=== PATIENT | male | born 1935 | race Caucasian/White ===

== ENCOUNTER 2021-01-06 10:35 | Emergency (ER) | payer MEDICARE, BC, SELFPAY ==
[2021-01-06 10:54] VITALS: BP 102/63; PULSE 73; RESP 14; TEMP 36.4; O2SAT 98
[2021-01-06 12:52] LABS: Add Manual Diff / Slide Review NO; Basophils Absolute Auto 0 /uL (0-100); Basophils Percent Auto 0.8 % (0-2); Eosinophils Absolute Auto 100 /uL (0-450); Eosinophils Percent Auto 1.3 % (2-4); Hematocrit 43.6 % (41-53); Hemoglobin 14.6 g/dL (13.5-17.5); Lymphocytes Absolute Auto 1400 /uL (1100-4500); Lymphocytes Percent Auto 26.1 % (25-40); Mean Corpuscular HGB Conc 33.5 % (30-36); Mean Corpuscular Hemoglobin 33.3 PG (26-34); Mean Corpuscular Volume 99.2 fL (80-100); Monocytes Absolute Auto 700 /uL (0-900); Monocytes Percent Auto 13.1 % (3-14); Neutrophils Absolute Auto 3200 /uL (1500-7000); Neutrophils Percent Auto 58.7 % (50-75); Platelet Count 221 X10^3/uL (150-400); Red Blood Cell Count 4.39 X10^6/uL (4.5-5.9); Red Cell Distribution Width 13.3 % (11.6-14.8); White Blood Cell Count 5.5 X10^3/uL (4.5-11.0)
[2021-01-06 12:58] LABS: Alanine Aminotransferase 30 IU/L (<50); Albumin 3.9 g/dL (3.5-5.0); Albumin Globulin Ratio 1.6 (1.0-2.8); Alkaline Phosphatase 44 U/L (38-126); Aspartate Aminotransferase 37 IU/L (17-59); BUN Creatinine Ratio 20.2 (6-22); Bilirubin Total 0.6 mg/dL (0.2-1.3); Blood Urea Nitrogen 17 mg/dL (9-20); Calcium 9.1 mg/dL (8.4-10.2); Carbon Dioxide 24 mmol/L (22-32); Chloride 111 mmol/L (98-107); Estimated Glomerular Filt Rate > 60.0 mL/min (>60); Globulin 2.4 g/dL (1.7-4.1); Glucose 96 mg/dL (80-110); HEMOLYSIS < 15 (0-50); Lipase 163 U/L (23-300); Potassium 3.9 mmol/L (3.4-5.1); Sodium 141 mmol/L (137-145); Total Protein 6.3 g/dL (6.3-8.2)
[2021-01-06 14:30] VITALS: BP 130/79; PULSE 79; RESP 18; O2SAT 100
--- NOTE | 2021-01-06 15:25 | ED.ABDPAIN ---
HPI - Abdominal Pain General Chief Complaint: Abdominal Pain Stated Complaint: right groin hernia, pain Time Seen by Provider: 01/06/21 15:05 Source: patient Mode of arrival: Wheelchair Limitations: no limitations History of Present Illness HPI narrative: Patient is a 85-year-old male with history of diverticulitis right inguinal canal hernia and right epididymis minus presenting to the ED for a right scrotal pain and inguinal pain. He has had symptoms ongoing for at least the last few days. He has been seen and evaluated at [facility] 5 times. He has had [address] on December 28 which showed a small amount of fluid in the right inguinal canal and a testicular ultrasound on January 01 which showed prominence right epididymal tail the increased vascularity suggestive of epididymitis in a partially reducible right inguinal canal hernia with fat and fluid. He has been treated with antibiotics. He presents today because they would like a 2nd opinion. is quite upset that it will take over a months to get into a surgeon. Today he was standing when he had sudden severe pain in his right inguinal canal. His pain is certainly worse when he bends over to tie his shoes it is better when he lies flat. She is concerned because he might fall secondary to the pain. Related Data Home Medications Medication Instructions Recorded Confirmed acetaminophen 325 mg tablet 325 mg PO ONCE PRN 12/25/19 07/17/20 (Tylenol) ascorbate calcium (vitamin C) 500 1 gram PO Q6H 12/25/19 07/17/20 mg tablet ergocalciferol (vitamin D2) 1,250 1,250 mcg PO QWEEK 12/25/19 07/17/20 mcg (50,000 unit) capsule escitalopram oxalate 10 mg tablet 10 mg PO DAILY 12/25/19 07/17/20 (Lexapro) apixaban 2.5 mg tablet (Eliquis) 2.5 mg PO BID 12/27/19 07/17/20 digoxin 125 mcg (0.125 mg) tablet 125 mcg PO DAILY 07/17/20 07/17/20 Allergies Allergy/AdvReac Type Severity Reaction Status Date / Time No Known Drug Allergies Allergy Verified 01/06/21 11:00 Review of Systems Review of Systems Narrative: GENERAL: Denies chills, fatigue, malaise, fever, sweats, travel HEENT: Denies sinus pain, ear pain, sore throat, difficulty swallowing, neck pain RESPIRATORY: Denies dyspnea, cough, wheezing, hemoptysis, sputum. CARDIOVASCULAR: Denies chest pain, palpitations, orthopnea, edema GASTROINTESTINAL: See HPI : Right testicular pain MUSCULOSKELETAL: Denies weakness, joint pain, or bony pain SKIN: No rash, no erythema, no pruritus NEUROLOGIC: Denies weakness, dizziness, headache, numbness, change in speech, confusion PSYCHIATRIC: No concerning psychosocial issues. 12 point review of systems is negative except for those stated above and HPI Patient History Medical History History of malignant neoplasm of prostate Malignant neoplasm prostate Surgical History Hx of radical prostatectomy Social History Smoking Status: Never smoker Smoking Status: Never smoker alcohol intake frequency: 0-2 drinks per day Substance Use Type: does not use Exam Initial Vital Signs Initial Vital Signs: Vital Signs Temperature 97.6 F 01/06/21 10:54 Pulse Rate 73 01/06/21 10:54 Respiratory Rate 14 01/06/21 10:54 Blood Pressure 102/63 01/06/21 10:54 Pulse Oximetry 98 01/06/21 10:54 GENERAL: Alert 85-year-old male sitting in bed does not appear in any acute pain HEENT: Head atraumatic,EOMI, pupils reactive, face symmetric, moist mucous membranes CARDIOVASCULAR: Regular rate and rhythm without murmurs, rubs or gallops. RESPIRATORY: Breath sounds equal bilaterally, no wheezes rales or rhonchi. ABDOMEN: Soft, nontender. Normoactive bowel sounds all 4 quadrants. No guarding or rebound. : When lying flat and there is minimal bulge in the right inguinal canal. Left testicle is nontender are red right testicle also nontender. He does have pain with palpation and certain area in the right inguinal canal EXTREMITIES: Normal range of motion, no clubbing or edema. Neurovascularly intact NEUROLOGICAL: Alert and oriented x4.Normal gait and speech. SKIN: Warm, dry, no laceration, no petechiae, no rashes or lesions. Course Orders Ordered: ED Orders 01/06/21 12:21 EKG-12 Lead Stat 01/06/21 12:36 Complete Blood Count AUTO DIFF Stat Comprehensive Metabolic Panel Stat Lipase Stat Vital Signs Vital signs: Vital Signs - 8 hr 01/06/21 10:54 01/06/21 14:30 Temperature 97.6 F Pulse Rate 73 79 Respiratory Rate 14 18 Blood Pressure 102/63 130/79 Pulse Oximetry 98 100 MDM - Abdominal Pain Lab Data Result diagrams: 01/06/21 12:36 01/06/21 12:36 Labs: Lab Results 01/06/21 01/06/21 Range/Units 12:36 12:36 WBC 5.5 (4.5-11.0) X10^3/uL RBC 4.39 L (4.5-5.9) X10^6/uL Hgb 14.6 (13.5-17.5) g/dL Hct 43.6 (41-53) % MCV 99.2 (80-100) fL MCH 33.3 (26-34) PG MCHC 33.5 (30-36) % RDW 13.3 (11.6-14.8) % Plt Count 221 (150-400) X10^3/uL Neut % (Auto) 58.7 (50-75) % Lymph % (Auto) 26.1 (25-40) % [place] % (Auto) 13.1 (3-14) % Eos % (Auto) 1.3 L (2-4) % Baso % (Auto) 0.8 (0-2) % Neut # (Auto) 3200 (1549-9292) /uL Lymph # (Auto) 1400 (5691-0298) /uL [place] # (Auto) 700 (0-900) /uL Eos # (Auto) 100 (0-450) /uL Baso # (Auto) 0 (0-100) /uL Sodium 141 (137-145) mmol/L Potassium 3.9 (3.4-5.1) mmol/L Chloride 111 H (98-107) mmol/L Carbon Dioxide 24 (22-32) mmol/L BUN 17 (9-20) mg/dL Creatinine 0.84 (0.66-1.25) mg/dL Estimated GFR > 60.0 (>60) mL/min BUN/Creatinine Ratio 20.2 (6-22) Glucose 96 (80-110) mg/dL Calcium 9.1 (8.4-10.2) mg/dL Total Bilirubin 0.6 (0.2-1.3) mg/dL AST 37 (17-59) IU/L ALT 30 (<50) IU/L Alkaline Phosphatase 44 (38-126) U/L Total Protein 6.3 (6.3-8.2) g/dL Albumin 3.9 (3.5-5.0) g/dL Globulin 2.4 (1.7-4.1) g/dL Albumin/Globulin Ratio 1.6 (1.0-2.8) Lipase 163 (23-300) U/L Point of care testing: Urine Dip Bedside Urine Glucose Negative Bedside Urine Bilirubin - Negative Bedside Urine Ketone - Negative Urine Specific [place] 1.020 Bedside Urine Occult Blood - Negative Bedside Urine pH 6.0 Bedside Urine Protein - Negative Bedside Urine Urobilinogen - Negative Bedside Urine Nitrite - Negative Bedside Urine Leukocytes - Negative Esterase Imaging Data US Scrotum: Radiologist's Impression: PROCEDURE: US SCROTUM INDICATIONS: RIGHT SCROTAL PAIN ?HERNIA TECHNIQUE: Real-time scanning was performed of the scrotum and testicles, with image documentation. Color and pulse Doppler interrogation was performed of both testicles. COMPARISON: [facility], US, US TESTICULAR SCROTUM + DOPPLER, 01/01/2021, 12:05. [facility], [place], US TESTICULAR SCROTUM, 12/28/2020, 10:38. FINDINGS: Right: Testicle is normal in size at 2.8 x 2.2 x 1.9 cm, and homogenous in echotexture. A few tiny hyper echogenic foci are seen scattered in right testicular parenchyma. Epididymis is normal in overall size and morphology. Small right-sided hydrocele is seen with minimal amount of internal debris. No varicocele.. Overlying scrotal skin thickening is seen. Left: Testicle is normal in size at 2.7 x 2.4 x 2 cm, and mildly heterogeneous in echotexture. Epididymis is normal in overall size. Heterogeneous parenchymal echotexture is see. Moderate slightly complex left hydrocele is seen. No varicoceles. Overlying scrotal skin thickening is seen. 5 x 6 x 3 mm avascular hyperechoic lesion noted in posterior left scrotal wall. Doppler: Color and pulse Doppler demonstrate increased vascularity in left testis and left epididymis. Right inguinal defect measures 1.5 cm at the neck is seen containing peristalising bowel loops and is partially reducible. IMPRESSION: 1. Left orchitis and epididymitis. No torsion. 2.Scotal wall thickening suggestive of cellulits. 3. Right inguinal partially reduciable hernia contains normal bowel loop. Dictated by: Emigdio Regalado M.D. on 01/06/2021 at 16:39 ECG Data Interpretation: Atrial fibrillation rate 93 MDM Narrative Medical decision making narrative: Patient has a reducible right inguinal canal hernia. He has not required anything for pain overall feeling slightly better. I have explained to that this is not an emergency. I have also educated them what to do when the pain returns and how to reduce it themselves. I will give him some more pain medication. I discussed case with Dr. Cherry on-call surgeon who graciously states that patient can stop Eliquis today call the office tomorrow and he will do his best and likely get him scheduled for surgery next week His left testicle is not tender not red, already treated with antibiotics I do not think appropriate to treat again for antibiotics I would monitor to see if he becomes symptomatic. Discharge Plan Departure Patient Disposition: Home Clinical Impression: Hernia, inguinal, right, Epididymitis Instructions: Groin Hernia -- Adult Activity Restrictions/Additional Instructions: *You have been diagnosed with right inguinal hernia *What to do: At this time you do have an inguinal hernia and left-sided epididymitis. Currently your hernia is reducible I understand that it is painful. This will need surgery, but not emergently at this time. However not emergently at this time. did discuss with Dr. Cherry who kindly recommended if you wanted you can stop her Eliquis today, call his office tomorrow and have it scheduled to have surgery next week *Continue to take medications as directed Finish antibiotics as prescribed -stop Eliquis today for 1 week in till you have surgery if you are unable to get surgery scheduled please restart your Eliquis *Follow up with your primary care provider in 2-3 days *Return to ER if you should have increasing pain, fever, not reducible swelling or bulge or any new, worsening or concerning symptoms Prescriptions: No Action escitalopram oxalate [Lexapro] 10 mg tablet 10 mg PO DAILY RF: 0 acetaminophen [Tylenol] 325 mg tablet 325 mg PO ONCE PRNRF: 0 ergocalciferol (vitamin D2) 1,250 mcg (50,000 unit) capsule 1,250 mcg PO QWEEK RF: 0 ascorbate calcium (vitamin C) 500 mg tablet 1 gram PO Q6H RF: 0 Eliquis 2.5 mg tablet 2.5 mg PO BID RF: 0 digoxin 125 mcg (0.125 mg) tablet 125 mcg PO DAILY RF: 0 Referrals: Ravinder Cherry MD [Physician] - Amanda Mcleod MD [Primary Care Provider] -
[2021-01-06 17:28] VITALS: BP 131/73; PULSE 72; RESP 16; TEMP 36.2; O2SAT 99
== END 2021-01-06 17:32 | disposition home or self-care (01) ==
PROVIDERS: Emergency Provider Emergency Medicine; PCP Family Medicine
DX: K40.90 Unilateral inguinal hernia, without obstruction or gangrene, not specified as recurrent (principal); N45.1 Epididymitis; R10.9 Unspecified abdominal pain
CPT/HCPCS: 36415; 76870; 80053; 81003; 83690; 85025; 93005; 93010; 99284

== ENCOUNTER → 2021-01-13 09:28 | Outpatient (CLI) | payer MEDICARE, BC, SELFPAY ==
[2021-01-13 10:41] LABS: COVID19 -Nasal RAPID Negative (Negative)
== END ==
PROVIDERS: PCP Family Medicine; Visit Provider Surgery
DX: Z20.822 Contact with and (suspected) exposure to COVID-19 (principal)
CPT/HCPCS: 87635; C9803

== ENCOUNTER 2021-01-14 14:19 | Day surgery (SDC) | payer MEDICARE, BC, SELFPAY ==
[2021-01-07 12:18] VITALS: BMI 29.2
[2021-01-14] VITALS (14 sets, daily range): BP systolic 108–136; BP diastolic 63–90; PULSE 67–91; RESP 11–17; TEMP 36.3–36.8; O2SAT 95–99; BMI 29.2
[2021-01-14] MEDS: LACTATED RINGERS 1,000 ML 100 ML IV (15:23)
--- NOTE | 2021-01-14 16:26 | PM.PREOP ---
Pre-operative Note Interval Note History & Physical reviewed/Exam performed by Physician: Yes Changes to H&P: No
[2021-01-14] MEDS: ACETAMINOPHEN 325 MG TABLET 975 MG PO (16:32)
--- NOTE | 2021-01-14 16:40 | SUR.OPER ---
Supine on padded OR bed, head on pillow, arms secured on padded arm boards at <90 degrees abduction, legs uncrossed, safety belt at thigh, tape over blanket over lower legs.
[2021-01-14] MEDS: CEFAZOLIN 1 GM VIAL 2 GM IV (16:55)
[2021-01-14] MEDS: BUPIVACAINE 0.25% (PF) VIAL 30 ML INJ (16:58)
--- NOTE | 2021-01-14 17:58 | P.OP_ITS ---
Operative Date/Time/Diagnoses Date of procedure: 01/14/21 Time of procedure: 17:58 Pre-op diagnosis: Reducible right inguinal Post-op diagnosis: same Procedure & Clinicians Procedure: Open right inguinal hernia repair with mesh Same procedure as scheduled: Yes Indications: Reducible right inguinal hernia Surgeon: Ravinder Cherry Click Yes if Unassisted: Yes Anesthesia Type: General Operative Notes Findings: Large indirect inguinal hernia containing bowel Specimen(s): none sent Estimated Blood Loss (mL): 50 Procedure in detail: The patient was placed supine on the table and bilateral lower extremity compression devices were applied. Anesthesia was induced they were intubated with an LMA and received 2g of Ancef. A time-out was performed. They were prepped and draped in sterile fashion. The right external inguinal ring and the anterior superior iliac crest were identified and marked. 1 finger breath above the inguinal ligament the skin was infiltrated with 0.25% bupivacaine. The skin incision was made here and the subcutaneous tissues were divided with electrocautery exposing the external oblique aponeurosis which was then opened along the direction of its fibers. Using blunt dissection the internal oblique aporneurosis was from the external oblique upper leaflet. The cord was carefully dissected away from the inguinal canal adjacent to the pubic tubercle. The cord including the vas deferens, testicular bloody supply, ilioguinal and genital nerve were encircled with a [place] drain. No direct floor defect was identified. The cremasteric fibers surrounding the cord were divided using electrocautery adjacent to the internal ring.. The vas deferens and the testicular vessels were preserved and protected. There was a large indirect hernia was skeletonized away from the vas deferens and testicular blood supply leaving a hernia containing viable bowel. The hernia was skeletonized back to the internal ring and reduced spontaneously into the abdomen. Plug of mesh was placed into the internal ring and secured in place using Vicryl suture. I selected a 7x 15 cm lightweight Pro Loop hernia mesh. The inferior medial aspect of the mesh was anchored to insertion of the rectus muscle to the pubic tubercle such that there was approximately 2 cm of tubercle overlap with Ethibond and then was run continuously along the inferior edge of the mesh to the shelving edge of the inguinal ligament. Interrupted 3 0 Vicryl suture was used to anchor the superior aspect of the mesh to the conjoined tendon in several places. The tails were then reapproximated loosely around the spermatic cord. The tails of the mesh were then tucked under the external oblique aponeurosis. The repair was checked for hemostasis. The wound was irrigated with sterile saline. The external oblique aponeurosis was reapproximated in a running fashion using 3 0 Vicryl. The subcutaneous tissues were reapproximated with 3 0 Vicryl skin closed with 4 0 Monocryl followed by the application of Dermabond. At the end of the operation I ensured that both testicles were within the scrotum. The sponge instrument count at the end operation was correct. The patient emerged from anesthesia was extubated and transferred to the postoperative care unit in stable condition. A total of 30 ml of of 0.25% bupivicaine was used to infiltrate the skin. Complications: none Post-operative Condition: stable Disposition: observation
--- NOTE | 2021-01-14 18:18 | SUR.PHASEI ---
Patient responsive to verbal stimuli and denies any pain or nausea at this time. Able to follow commands, wiggles his toes on command and has bilateral equal cheese blender when prompted.
[2021-01-14] MEDS: ACETAMINOPHEN 325 MG TABLET 650 MG PO (19:34)
[2021-01-14] MEDS: MELATONIN 3 MG TABLET 9 MG PO (21:27)
[2021-01-14] MEDS: GABAPENTIN 100 MG CAPSULE PO (21:27)
[2021-01-15] MEDS: ACETAMINOPHEN 325 MG TABLET 650 MG PO ×2 (00:27→06:48)
[2021-01-15 00:56] VITALS: BP 101/69; PULSE 83; RESP 16; TEMP 36.2; O2SAT 97
[2021-01-15 03:00] VITALS: O2SAT 94
[2021-01-15 05:00] VITALS: BP 135/63; PULSE 85; RESP 18; TEMP 36.5; O2SAT 96
[2021-01-15 07:23] VITALS: BP 108/52; PULSE 83; RESP 16; TEMP 36.5; O2SAT 95
[2021-01-15] MEDS: DONEPEZIL 5 MG TABLET 10 MG PO (08:57)
[2021-01-15] MEDS: GABAPENTIN 100 MG CAPSULE PO (08:58)
[2021-01-15] MEDS: ESCITALOPRAM 10 MG TABLET PO (08:58)
[2021-01-15] MEDS: DIGOXIN 0.125 MG TABLET PO (08:58)
--- NOTE | 2021-01-15 10:47 | PC.NURSE ---
Assess- Patient is alert and oriented x3. He has a small incision to the right lower abdomen with steri strip in place. He denies pain and will be discharging home shortly.
== END 2021-01-15 11:28 | disposition home or self-care (01) ==
LOC: OR 14:22 → AC 18:59
PROVIDERS: PCP Family Medicine; Referring Provider Surgery; Visit Provider Surgery
PROC: (CPT 49505; principal; 2021-01-14 15:30)
DX: K40.90 Unilateral inguinal hernia, without obstruction or gangrene, not specified as recurrent (principal); I48.91 Unspecified atrial fibrillation
CPT/HCPCS: 49505; 36592; 82962; C1781; J0690; J1100; J2405; J2704; J3010

== ENCOUNTER → 2021-03-18 09:43 | Outpatient (CLI) | payer MEDICARE, BC, SELFPAY ==
[2021-01-14 19:19] VITALS: BMI 29.2
--- NOTE | 2021-03-18 09:46 | DI.US.S_ITS ---
PROCEDURE: US SCROTUM INDICATIONS: PAIN TECHNIQUE: Real-time scanning was performed of the scrotum and testicles, with image documentation. Color and pulse Doppler interrogation was performed of both testicles. COMPARISON: [facility], [place], US TESTICULAR SCROTUM + DOPPLER, 02/12/2021, 8:41. [facility], [place], US SCROTUM, 01/06/2021, 15:55. FINDINGS: Right: Testicle is normal in size at 2.9 x 2.2 x 1.9 cm, and homogenous in echotexture. Several scattered microcalcifications redemonstrated. Epididymis is normal in overall size and morphology. Trace right hydrocele. No varicoceles. Overlying scrotal skin is normal in thickness. Complex mass again seen within the right inguinal canal which appears similar prior examination and may represent fat containing inguinal hernia versus prominent pampiniform plexus. Left: Testicle is normal in size at 2.3 x 2.1 x 1.9 cm, and homogeneous in echotexture. Few scattered microcalcifications redemonstrated. Epididymis is normal in overall size and morphology. Moderate complex left hydrocele redemonstrated. 6 mm mass again seen within the left hemiscrotum with wall calcification which may represent a scrotal pleural. Overlying scrotal skin is thickened up to 7.7 mm Doppler: Color and pulse Doppler demonstrate slight increase in flow within the left testis relative to the right testis.. IMPRESSION: 1. Slight increase in flow again seen involving the left testis relative to the right suggestive of mild orchitis. Clinical correlation and follow-up is recommended. 2. Bilateral complex hydroceles, left greater than right. Developing pyocele cannot be excluded. 3. Thickening of the left scrotal wall and cellulitis cannot be excluded. Recommend direct visualization. 4. Possible left herbert scrotal pleural measuring up to 6 mm redemonstrated. 5. Possible non reducible right inguinal hernia versus prominent pampiniform plexus. If indicated, CT could be performed for further assessment. Dictated by: Velasquez LEONARD Interpreted: Emigdio Regalado MD on 03/18/2021 at 12:47 Transcribed by: ALEX on 03/18/2021 at 12:59 Approved by: Emigdio Regalado M.D. on 03/18/2021 at 15:40
== END ==
PROVIDERS: PCP Family Medicine; Referring Provider Specialist; Visit Provider Specialist
DX: N45.2 Orchitis (principal); N50.82 Scrotal pain; N43.3 Hydrocele, unspecified; Z85.46 Personal history of malignant neoplasm of prostate
CPT/HCPCS: 76870; 99215